=== PATIENT | female | born 1940 | race Caucasian/White ===

== ENCOUNTER → 2016-05-13 | Outpatient (CLI) | payer MEDICARE, OTHER ==
--- NOTE | 2016-05-13 16:49 | RADIOLOGY REPORT PS360 ---
LUMBAR SPINE 5 VIEWS ORDERING PHYSICIAN : Christine Mars APRN PATIENT AGE: 75 years GENDER: Female INDICATION: ACUTE LEFT SIDED LOW BACK PAINAcute left-sided pain. Low back pain. TECHNIQUE: Five-view lumbar spine cered series COMPARISON: None. FINDINGS No compression fracture. L3/4: Marked severe degenerative disc space narrowing. Severe sclerosis and reactive endplate changes about this narrowed disc. 5.5 mm retrolisthesis of L3 on L4 . The other disc spaces are better maintained with only slight narrowing posteriorly at L4/5 disc space. Degenerative facet changes most evident at L5/S1 and L4/5. No pars SI joints patent sacrum unremarkable. Mild sclerotic changes at the right margin right SI joint May reflect early degenerative changes here. Atherosclerotic calcification throughout aorta but no appreciable aneurysm evident on plain film IMPRESSION: ............ 1. Most significant findings at L3/4 L3/4/: Severe degenerative disc space narrowing with up to 5.5 mm retrolisthesis of L3 on L4. Prominent sclerosis & reactive endplate changes about this markedly narrowed disc space. 2. Mild/moderate degenerative facet changes L4/5 L5/S1
== END ==
LOC: RAD 11:32
DX: M54.42 Lumbago with sciatica, left side (principal)

== ENCOUNTER → 2016-08-17 | Outpatient (CLI) | payer MEDICARE, OTHER ==
[2016-08-17 10:36] LABS: BUN 19 mg/dL (7-18)
[2016-08-17 10:40] LABS: GFR (ESTIMATED) 61 ML/MIN (59-)
== END ==
LOC: LAB 08:49
PROVIDERS: Nurse Practitioner Family
DX: I10 Essential (primary) hypertension (principal); E78.5 Hyperlipidemia, unspecified; I48.91 Unspecified atrial fibrillation; R73.9 Hyperglycemia, unspecified

== ENCOUNTER → 2017-01-05 | Outpatient (CLI) | payer MEDICARE, OTHER ==
[~2017-01-05] MED LIST: ADULT LOW DOSE81 MG; LIPITOR40 MG; MELATIN1 TAB; MULTIVITAMIN1 SGL; NYSTATIN CREAM15 GM; PREMARIN V0.625 MG/G; PRILOSEC20 M1; [UNRECOGNIZED DRUG - OTHER]
[2017-01-05 10:06] LABS: BUN 22 mg/dL (7-18)
[2017-01-05 10:16] LABS: GFR (ESTIMATED) 61 ML/MIN (59-)
[2017-01-06 12:36] LABS: Creatinine, Urine 79.1 mg/dL (Not Estab.); Microalbumin, Urine 3.6 ug/mL (Not Estab.)
== END ==
LOC: LAB 07:59
PROVIDERS: Nurse Practitioner Family
DX: I10 Essential (primary) hypertension (principal); E78.5 Hyperlipidemia, unspecified; R73.9 Hyperglycemia, unspecified